=== PATIENT | female | born 1945 | race Asian ===

== ENCOUNTER → 2016-10-24 | Outpatient (CLI) | payer OTHER ==
[~2016-10-24] MED LIST: ASPI-825 PO; HYDR-3110 PO; MOTRIN PO; PREDNISONE PO; SIMVASTATIN PO; VITAMIN E PO
== END | disposition home or self-care (01) ==
LOC: RADPV 11:47
PROVIDERS: ATTEND Internal Medicine
DX: M16.0 Bilateral primary osteoarthritis of hip (principal); Z96.641 Presence of right artificial hip joint
CPT/HCPCS: 73521